=== PATIENT | female | born 1980 | race Caucasian/White ===

== ENCOUNTER 2023-09-18 03:20 | Emergency (ER) | payer SELFPAY ==
[~2023-09-18] VITALS: Ht 160 cm; Wt 76.7 kg
[2023-09-18 03:30] VITALS: BP 131/87; PULSE 74; RESP 18; TEMP 97.8; O2SAT 98
[2023-09-18] MEDS ORDERED: KETOROLAC 30 MG/ML VIAL IM ONE (04:05)
[2023-09-18] MEDS ORDERED: AMOX1TAB8 PO (04:08)
[2023-09-18] MEDS ORDERED: ACET-10509 PO (04:08)
[2023-09-18] MEDS ORDERED: NAPR-54 PO (04:08)
== END 2023-09-18 04:30 | disposition home or self-care (01) ==
LOC: MED 03:20
DX: J32.9 Chronic sinusitis, unspecified (principal); Z79.899 Other long term (current) drug therapy
CPT/HCPCS: 96372; 99283; J1885

== ENCOUNTER 2024-01-14 22:04 | Emergency (ER) | payer OTHER ==
[~2024-01-14] VITALS: Ht 152.4 cm; Wt 72.6 kg
[~2024-01-14 22:04] MED LIST: ACET-10509 PO; AMOX1TAB8 PO; NAPR-54 PO
[2024-01-14 22:39] VITALS: BP 155/99; PULSE 84; RESP 16; TEMP 98.6; O2SAT 100
[2024-01-14] MEDS ORDERED: ATA25 PO (23:02)
[2024-01-14] MEDS ORDERED: PRED20TA5 PO (23:02)
[2024-01-14] MEDS ORDERED: IBUP-2213 PO (23:02)
[2024-01-14] MEDS: KETOROLAC 60 MG/2 ML VIAL IM ONE (23:14)
[2024-01-14] MEDS: PENICILLIN G BENZATHINE L-A 1.2 MU/2 ML SYR IM ONE (23:15)
== END 2024-01-14 23:27 | disposition home or self-care (01) ==
LOC: MED 22:04
DX: J02.0 Streptococcal pharyngitis (principal); F41.9 Anxiety disorder, unspecified; F17.200 Nicotine dependence, unspecified, uncomplicated; Z79.899 Other long term (current) drug therapy
CPT/HCPCS: 96372; 99284; J0561; J1885

== ENCOUNTER 2024-02-11 20:32 | Emergency (ER) | payer OTHER ==
[~2024-02-11] VITALS: Ht 160 cm; Wt 72.6 kg
[~2024-02-11 20:32] MED LIST changes: +ATA25 PO; +IBUP-2213 PO; +PRED20TA5 PO
[2024-02-11 20:45] VITALS: BP 140/80; PULSE 90; RESP 19; TEMP 98.2; O2SAT 100
[2024-02-11 21:28] VITALS: BP 140/80; PULSE 90; RESP 19; TEMP 98.2; O2SAT 100
[2024-02-11] MEDS ORDERED: KEN.025C TP (21:48)
[2024-02-11] MEDS ORDERED: ATA25 PO (21:48)
== END 2024-02-11 21:52 | disposition home or self-care (01) ==
LOC: MED 20:32
DX: L50.9 Urticaria, unspecified (principal); F41.9 Anxiety disorder, unspecified; F43.9 Reaction to severe stress, unspecified; J45.909 Unspecified asthma, uncomplicated; I10 Essential (primary) hypertension; Z86.73 Personal history of transient ischemic attack (TIA), and cerebral infarction without residual deficits; Z79.899 Other long term (current) drug therapy
CPT/HCPCS: 99283